=== PATIENT | male | born 1950 | race Caucasian/White ===

== ENCOUNTER 2025-04-09 05:58 | Day surgery (SDC) | payer BC, MEDICARE ==
[~2025-04-09 05:58] MED LIST: Propofol 200 MG/20 ML SDV ONE
[2025-04-09] MEDS: Lactated Ringers 1,000 ML IV SCH (06:52)
== END 2025-04-09 08:32 | disposition home or self-care (01) ==
LOC: DL.ENDO 05:58
PROVIDERS: ATTEND Internal Medicine Gastroenterology
DX: Z12.11 Encounter for screening for malignant neoplasm of colon (principal); K57.30 Diverticulosis of large intestine without perforation or abscess without bleeding; K64.4 Residual hemorrhoidal skin tags; K64.8 Other hemorrhoids; E66.9 Obesity, unspecified; Z68.32 Body mass index [BMI] 32.0-32.9, adult; Z91.041 Radiographic dye allergy status
CPT/HCPCS: J7120